=== PATIENT | male | born 1930 | race Caucasian/White ===

== ENCOUNTER 2017-03-10 11:07 | Inpatient (IN) | payer MEDICARE, OTHER ==
[2017-03-10 13:50] VITALS: BMI 25.4
[2017-03-10] MEDS ORDERED: ACETAMINOPHEN TAB 325 MG TAB PO PRN (14:33)
[2017-03-10] MEDS: FINASTERIDE 5 MG TAB PO SCH (15:03)
[2017-03-10] MEDS: MULTIVITAMINS, THERA 1 EACH TAB PO SCH (15:03)
[2017-03-10] MEDS: SODIUM BICARBONATE TAB 650 MG TAB PO SCH (15:03)
--- NOTE | 2017-03-10 20:27 | HP ---
DATE OF ADMISSION: CHIEF COMPLAINT: Altered mental status/confusion. HISTORY OF ILLNESS: Mr. Aleman is an 86-year-old man with a known history of ESRD, on hemodialysis Monday, Monday, Monday and history of paroxysmal atrial fibrillation, currently on aspirin due to previous GI bleed. He is an [facility] resident. He was brought to the hospital with altered mental status. Patient had trouble communicating and was found by his daughter. Patient did have a history of CVA with right hemiparesis as well as right hand weakness. Apparently the patient was confused, having slurred speech, unable to open eyes fully, and drooling since today morning. Patient was initially sent to [facility]. Patient otherwise is a poor historian, and most of the history was obtained from the medical records. Patient follows with Dr. Parham as an outpatient and follows with Dr. Donovan for hemodialysis. Patient could not go to hemodialysis last Monday due to weakness and confusion. Patient also was having trouble swallowing. Patient was transferred initially for further neurologic evaluation, including MRI. He does not have any recent illnesses. Patient usually has weakness on the right side. At a patient care conference 3 days ago he was noted to be weaker on the left side, and there was concern about his ability to swallow. His daughter says the patient has had chronic choking cough along with some mild upper respiratory infection symptoms. Patient does have a history of atrial fibrillation, currently maintained in sinus rhythm; follows with Dr. Gonzales as an outpatient. Anticoagulation has been discontinued due to epistaxis, hemoptysis and bleeding from his shunt. No history of acute VT in the past. Patient does have CHF; ejection fraction unknown at this time. Review of systems could not be obtained from the patient. Past medical history includes: 1. ESRD, on hemodialysis. 2. History of CVA with right-sided hemiparesis. 3. Depression. 4. History of atrial fibrillation, currently maintained in sinus rhythm. Anticoagulation has been discontinued previously due to bleeding. 5. History of CHF. 6. Peptic ulcer disease and diverticulitis. 7. Degenerative joint disease. PAST SURGICAL HISTORY: 1. ( ) left arm. 2. Fracture, left ankle. 3. Right hip surgery on 08/05. SOCIAL HISTORY: Patient does not have any smoking, drinking alcohol, drugs or IVDU. Vaccination up to date. Family history could not be obtained from the patient. ALLERGIES: NO KNOWN DRUG ALLERGIES. Home medications include: 1. Aspirin. 2. Proscar. 3. Mirtazapine. 4. Multivitamins. 5. Sodium bicarbonate. 6. Tylenol. PHYSICAL EXAMINATION: An 86-year-old male lying in the bed. Awake, alert. Could not provide any history. VITALS: Blood pressure is 116/49, pulse 69, respiration 17, temperature afebrile, pulse ox 97% on 2 L nasal cannula. HEENT: Atraumatic, normocephalic. Neck is supple. No JVD. CVS: S1, S2 heard. No murmurs. No gallop. LUNGS: Bilateral air entry is present. Minimal crackles at the base. Nonlabored breathing. ABDOMEN: Soft, nontender. Bowel sounds are present. UPPER INSPECTOR: Awake, alert. Not oriented. Confused. Able to move his extremities on the left side, but does have right-sided hemiparesis, especially right upper arm. PSYCHIATRIC: Cooperative. Could not be assessed completely. EXTREMITIES: No edema. Pulses palpable bilaterally. Laboratory data done at [facility] showed WBC 5.7, hemoglobin 12.2, MCV 92.1, platelets 101. Sodium 139, potassium 4.0, chloride 99, bicarb 24. Glucose 99. BUN 79, creatinine 8.2. Calcium 9.1. Albumin 3.0. Alkaline phosphatase 113, ALT 17, AST 22, total bilirubin 0.8. CK-MB 2.8 and CK 31. Troponin 0.314. INR 1.3. Chest x-ray at [facility] showed cardiomegaly with mild vascular congestion and interstitial prominence/edema bilaterally. Small bilateral pleural effusions are suspected. Nodularity in the hilar region bilaterally. No focal pulmonary infiltrate or pneumothorax noted. Urinalysis at [facility] is negative for infection. EKG showed sinus rhythm with prolonged QT interval. IMPRESSION: 1. Altered mental status; possible metabolic encephalopathy versus new cerebrovascular accident with suspected left-sided weakness as well recently. 2. History of cerebrovascular accident with right hemiparesis in the past. 3. Slurred speech and expressive aphasia. 4. History of atrial fibrillation, currently in sinus rhythm, on aspirin due to previous gastrointestinal bleed. 5. End-stage renal disease, on hemodialysis Monday, Monday and Monday; missed on Monday. 6. Major depression. 7. Elevated troponin level at [facility]; possible [id number]-elevation myocardial infarction. 8. Degenerative joint disease. DISCUSSION AND PLAN: Patient will be continued on telemetry monitoring. Nephrology has been consulted for hemodialysis. Will check serial troponins and monitor closely. Will consult Neurology for further evaluation and workup, including MRI. Will continue to follow closely. Further recommendations based on the clinical course.
[2017-03-10] MEDS: MIRTAZAPINE 15 MG TAB PO SCH ×2 (22:29→22:46)
[2017-03-10] MEDS: ASPIRIN 81 MG CHEW PO SCH ×2 (22:29→22:46)
[2017-03-11 07:20] LABS: Basophils % (A) 1 %; CH 31.1; CHCM 32.5; Eosinophils # (A) 0.1 k/uL (0-0.7); Eosinophils % (A) 2 %; HCT 37.3 % (39.0-53.0); HGB 12.2 gm/dL (13.0-17.5); Luc # (Auto) 0.17; Luc % (Auto) 3; Lymphocytes # (A) 0.8 k/uL (1.0-4.8); Lymphocytes % (A) 14 %; MCH 31.3 pg (25.0-35.0); MCHC 32.7 g/dL (31.0-37.0); MCV 95.8 fL (80.0-100.0); Mean Platelet Volume 9.7; Monocytes # (A) 0.4 k/uL (0-1.0); Monocytes % (A) 7 %; Neutrophils # (A) 4.2 k/uL (1.3-7.7); Neutrophils % (A) 73 %; RDW 15.6 % (11.5-15.5); WBC 5.7 k/uL (3.8-10.6)
[2017-03-11 07:31] LABS: Potassium 4.5 mmol/L (3.5-5.1)
[2017-03-11] MEDS: FINASTERIDE 5 MG TAB PO SCH (08:29)
[2017-03-11] MEDS: MULTIVITAMINS, THERA 1 EACH TAB PO SCH (08:29)
[2017-03-11] MEDS: SODIUM BICARBONATE TAB 650 MG TAB PO SCH (08:29)
--- NOTE | 2017-03-11 09:32 | P.NPCON ---
History of Present Illness - Reason for Consult end stage renal disease - History of Present Illness Reason for consultation: End-stage renal disease History of present illness: Patient is a 86-year-old male seen in renal consultation for end- stage renal disease. He is maintained on hemodialysis on a Monday schedule. Patient presented to the hospital with altered mental status. Apparently he was confused and was having slurred speech as well. There is also concern for a chronic cough and difficulty with swallowing. No fever. White count in normal range. He does have history of CVA. There was concern for an acute CVA at this admission. He scheduled to undergo an MRI of the brain today. Neurology is following. Patient is not a very reliable historian and does not respond appropriately. 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 There is no vomiting or diarrhea. Denies chest pain or shortness of breath. Hemodynamically stable. He did undergo hemodialysis yesterday. 2 L ultrafiltration. Vital signs are stable. General: The patient appeared well nourished and normally developed. HEENT: Head exam is unremarkable. Neck is without jugular venous distension. LUNGS: Lungs are clear to auscultation and percussion. Breath sounds decreased. HEART: Rate and Rhythm are regular. First and second heart sounds normal. No murmurs, rubs or gallops. ABDOMEN: Abdominal exam reveals normal bowel sounds. Non-tender and non- distended. No evidence of peritonitis. EXTREMITITES: No clubbing, cyanosis, or edema. Past Medical History Past Medical History: Atrial Fibrillation, Dialysis, Hypertension Additional Past Medical History / Comment(s): recurrent nose bleeds History of Any Multi-Drug Resistant Organisms: None Reported Past Surgical History: Cholecystectomy, Prostate Surgery Additional Past Surgical History / Comment(s): left arm fistula Past Anesthesia/Blood Transfusion Reactions: No Reported Reaction Past Psychological History: No Psychological Hx Reported Smoking Status: Never smoker Past Alcohol Use History: None Reported Past Drug Use History: None Reported - Past Family History Father Family Medical History: CVA/TIA Mother Family Medical History: Cancer Additional Family Medical History / Comment(s): pancreatic cancer Medications and Allergies Home Medications Medication Instructions Recorded Confirmed Type Aspirin EC [Ecotrin Low Dose] 81 mg PO HS 07/21/16 03/10/17 History Finasteride [Proscar] 5 mg PO DAILY 07/21/16 03/10/17 History Mirtazapine 30 mg PO HS 07/21/16 03/10/17 History Multivitamins, Thera [Multivitamin 1 tab PO DAILY 07/21/16 03/10/17 History (formulary)] Sodium Bicarbonate 325 mg PO DAILY 07/21/16 03/10/17 History Allergies Allergy/AdvReac Type Severity Reaction Status Date / Time No Known Allergies Allergy Verified 03/10/17 15:15 Physical Exam Vitals: Vital Signs Temp Pulse Resp BP Pulse Ox 03/11/17 08:38 98.4 F 74 18 121/67 97 03/11/17 04:00 98.0 F 68 18 109/60 99 03/11/17 00:00 97.3 F L 74 20 158/73 98 03/10/17 20:00 97.3 F L 80 22 164/83 96 03/10/17 19:29 97.1 F L 78 22 141/80 98 03/10/17 16:45 73 03/10/17 16:00 97.6 F 73 18 127/77 99 03/10/17 13:41 97 F L 67 17 116/49 97 Intake and Output 03/10/17 03/11/17 03/11/17 22:59 06:59 14:59 Intake Total 0 0 Balance 0 0 Intake: Oral 0 0 Other: # Voids 1 1 Weight 74.5 kg Results - Lab Results Most recent lab results Calcium 9.0 mg/dL (8.4-10.2) 03/11/17 06:36 03/11/17 06:36 03/11/17 06:36 Assessment and Plan Plan: Assessment: #1. End-stage renal disease maintained on hemodialysis on a Monday schedule. #2. Altered mental status with concern for an acute CVA. #3. Hypertension with chronic kidney disease. Controlled. #4. Metabolic acidosis, maintained on oral sodium bicarbonate. Plan: Hemodialysis Monday with goal 2 liters ultrafiltration. Maintain oral sodium bicarbonate supplementation. Check phosphorus level. Neurology following. Scheduled for MRI of the brain today. Follow-up carotid ultrasound results. He is also on aspirin 81 mg daily. Thank you for the consultation. I will continue to follow the patient with you during his hospital stay.
--- NOTE | 2017-03-11 10:30 | US ---
EXAMINATION TYPE: US carotid duplex BILAT DATE OF EXAM: 03/11/2017 7:54 AM COMPARISON: NONE CLINICAL HISTORY: right sided weakness possible CVA. EXAM MEASUREMENTS: RIGHT: Peak Systolic Velocity (PSV) cm/sec ----- Right CCA: 66.5 ----- Right ICA: 72.1 ----- Right ECA: 83.1 ICA/CCA ratio: 1.1 RIGHT: End Diastole cm/sec ----- Right CCA: 9.9 ----- Right ICA: 12.8 ----- Right ECA: 0.0 LEFT: Peak Systolic Velocity (PSV) cm/sec ----- Left CCA: 62.2 ----- Left ICA: 78.6 ----- Left ECA: 88.7 ICA/CCA ratio: 1.3 LEFT: End Diastole cm/sec ----- Left CCA: 9.1 ----- Left ICA: 13.0 ----- Left ECA: 6.3 VERTEBRALS (direction of flow): Right Vertebral: Antegrade Left Vertebral: Antegrade Patient unable to move neck to cooperate with examiner, making exam technically difficult. No signifi cant stenosis seen. IMPRESSION: 1. No suspicious stenosis. 2. Atheromatous plaquing present bilaterally without significant flow-limiting stenosis. Criteria for Assigning % of Stenosis / Diameter reduction (Estimation based on the indirect measurements of the internal carotid artery velocities (ICA PSV). 1. Normal (no stenosis)=ICA PSV < 125 cm/s: ratio < 2.0: ICA EDV<40 cm/s. 2. Less than 50% stenosis=ICA PSV < 125 cm/s: ratio < 2.0: ICA EDV<40 cm/s. 3. 50 to 69% stenosis=ICA PSV of 125 to 230 cm/s: ration 2.0 ? 4.0: ICA EDV 40-100 cm/s. 4. Greater than 70% stenosis to near occlusion= ICA PSV > 230 cm/s: ratio > 4.0: ICA EDV > 100 cm/s. 5. Near occlusion= ICA PSV velocities may be low or undetectable: variable ratio and ICA EDV. 6. Total occlusion=unable to detect flow.
--- NOTE | 2017-03-11 14:00 | P.CRDCN ---
History of Present Illness Consult date: 03/11/17 Reason for Consult (text): Elevated Troponin Chief complaint: altered mental status, aphasia History of present illness: This is a confused 86-year-old gentleman with family at bedside. He has a history of end-stage renal disease, on hemodialysis, paroxysmal atrial fibrillation, for which anticoagulants were stopped due to epistaxis hemoptysis and bleeding from AV fistula, questionable CVA in the past and CHF. He is a resident at [facility]. He is a patient of Dr. Peace. The patient is confused, drowsy and having expressive aphasia therefore HPI and limited review of system was obtained from the chart and the family. He was sent to ER from his extended care facility after being noted to be confused, increased left- sided weakness and expressive aphasia with some dysphasia. Radiology was asked to see the patient in consult due to elevated troponin levels were noted to be 0.314, 0.2-2 and 0.312, consistent with previous troponin levels. BUN 43 and creatinine 4.94. Chest x-ray did show some mild vascular congestion and small bilateral pleural effusions. According to the family, patient has not had any fever or chills however has had a cough for quite a while. He apparently began complaining of increasing weakness on his left side earlier this week. He has not complained of any chest pain, palpitations or shortness of breath. Past Medical History Past Medical History: Atrial Fibrillation, Dialysis, Hypertension Additional Past Medical History / Comment(s): recurrent nose bleeds History of Any Multi-Drug Resistant Organisms: None Reported Past Surgical History: Cholecystectomy, Prostate Surgery Additional Past Surgical History / Comment(s): left arm fistula Past Anesthesia/Blood Transfusion Reactions: No Reported Reaction Past Psychological History: No Psychological Hx Reported Smoking Status: Never smoker Past Alcohol Use History: None Reported Past Drug Use History: None Reported - Past Family History Father Family Medical History: CVA/TIA Mother Family Medical History: Cancer Additional Family Medical History / Comment(s): pancreatic cancer Medications and Allergies Home Medications Medication Instructions Recorded Confirmed Type Aspirin EC [Ecotrin Low Dose] 81 mg PO HS 07/21/16 03/10/17 History Finasteride [Proscar] 5 mg PO DAILY 07/21/16 03/10/17 History Mirtazapine 30 mg PO HS 07/21/16 03/10/17 History Multivitamins, Thera [Multivitamin 1 tab PO DAILY 07/21/16 03/10/17 History (formulary)] Sodium Bicarbonate 325 mg PO DAILY 07/21/16 03/10/17 History Allergies Allergy/AdvReac Type Severity Reaction Status Date / Time No Known Allergies Allergy Verified 03/10/17 15:15 Physical Exam Vitals: Vital Signs Temp Pulse Resp BP Pulse Ox 03/11/17 08:38 98.4 F 74 18 121/67 97 03/11/17 04:00 98.0 F 68 18 109/60 99 03/11/17 00:00 97.3 F L 74 20 158/73 98 03/10/17 20:00 97.3 F L 80 22 164/83 96 03/10/17 19:29 97.1 F L 78 22 141/80 98 03/10/17 16:45 73 03/10/17 16:00 97.6 F 73 18 127/77 99 03/10/17 13:41 97 F L 67 17 116/49 97 Intake and Output 03/10/17 03/11/17 03/11/17 22:59 06:59 14:59 Intake Total 0 0 Balance 0 0 Intake: Oral 0 0 Other: # Voids 1 1 Weight 74.5 kg PHYSICAL EXAMINATION: HEENT: Head is atraumatic, normocephalic. Pupils equal, round. Neck is supple. There is no elevated jugular venous pressure. HEART EXAMINATION: Heart sounds regular, S1 and S2 normal. No murmur or gallop heard. CHEST EXAMINATION: Lungs reveal diminished air entry. No chest wall tenderness is noted on palpation or with deep breathing. ABDOMEN: Soft, nontender. Bowel sounds are heard. No organomegaly noted. EXTREMITIES: Diminished peripheral pulses with no evidence of peripheral edema and no calf tenderness noted. NEUROLOGIC patient is drowsy, responds to verbal and tactile stimuli, confused with expressive aphasia. . Results 03/11/17 06:36 03/11/17 06:36 Cardiac Enzymes 03/10/17 03/11/17 Range/Units 17:48 06:36 Troponin I 0.222 H* 0.312 H* (0.000-0.034) ng/mL Lipids 03/11/17 Range/Units 06:36 Triglycerides 78 (<150) mg/dL Cholesterol 74 (<200) mg/dL HDL Cholesterol 32 L (40-60) mg/dL CBC 03/11/17 Range/Units 06:36 WBC 5.7 (3.8-10.6) k/uL RBC 3.90 L (4.30-5.90) m/uL Hgb 12.2 L (13.0-17.5) gm/dL Hct 37.3 L (39.0-53.0) % Comprehensive Metabolic Panel 03/11/17 Range/Units 06:36 Sodium 135 L (137-145) mmol/L Potassium 4.5 (3.5-5.1) mmol/L Chloride 98 (98-107) mmol/L Carbon Dioxide 21 L (22-30) mmol/L BUN 43 H (9-20) mg/dL Creatinine 4.94 H (0.66-1.25) mg/dL Glucose 69 L (74-99) mg/dL Calcium 9.0 (8.4-10.2) mg/dL Current Medications Generic Name Dose Route Start Last Admin Trade Name Freq PRN Reason Stop Dose Admin Acetaminophen 650 mg 03/10/17 14:33 Tylenol Tab PO Q6HR PRN Fever > 100.5 Aspirin 81 mg 03/10/17 21:00 03/10/17 22:46 Aspirin PO Not Given HS ASHISH Finasteride 5 mg 03/10/17 14:45 03/11/17 08:29 Proscar PO Not Given DAILY ASHISH Mirtazapine 30 mg 03/10/17 21:00 03/10/17 22:46 Remeron PO Not Given HS ASHISH Multivitamins 1 each 03/10/17 14:45 03/11/17 08:29 Theragran PO Not Given DAILY ASHISH Sodium Bicarbonate 325 mg 03/10/17 14:45 03/11/17 08:29 Sodium Bicarbonate Tab PO Not Given DAILY ASHISH Intake and Output 03/10/17 03/11/17 03/11/17 22:59 06:59 14:59 Intake Total 0 0 Balance 0 0 Intake: Oral 0 0 Other: # Voids 1 1 Weight 74.5 kg 03/11/17 06:36 03/11/17 06:36 Assessment and Plan Plan: Assessment and plan #1 end-stage renal disease, on hemodialysis #2 paroxysmal atrial fibrillation, not currently on anticoagulation secondary to epistaxis, hemoptysis and bleeding from AV fistula #3 CVA #4 history of CHF, ejection fraction unknown at this time #5 elevated troponin, similar to previous draws, not consistent with myocardial injury, likely secondary to renal failure From cardiology standpoint, we will obtain 2-D echo. We will continue to follow the patient with you and provide further recommendations accordingly. RESOURCE SPECIALIST note has been reviewed, I agree with a documented findings and plan of care. Patient was seen and examined.
--- NOTE | 2017-03-11 15:36 | ECHOF ---
Referral Reason:Elevated troponin MEASUREMENTS -------- HEIGHT: 162.6 cm WEIGHT: 6.4 kg BP: 130/40 RVIDd: 2.8 cm (< 3.3) IVSd: 1.1 cm (0.6 - 1.1) LVIDd: 4.5 cm (3.9 - 5.3) LVPWd: 1.1 cm (0.6 - 1.1) IVSs: 1.7 cm LVIDs: 3.8 cm LVPWs: 1.5 cm LA Diam: 4.9 cm (2.7 - 3.8) Ao Diam: 3.3 cm (2.0 - 3.7) AV Cusp: 1.5 cm (1.5 - 2.6) LA Diam: 6.0 cm (2.7 - 3.8) MV EXCURSION: 20.607 mm (> 18.000) MV EF SLOPE: 73 mm/s (70 - 150) EPSS: 0.9 cm MV E Joel: 1.15 m/s MV A Joel: 0.39 m/s MV E/A Ratio: 2.97 RAP: 5.00 mmHg RVSP: 42.35 mmHg FINDINGS -------- Sinus rhythm. This was a technically adequate study. There is mild concentric left ventricular hypertrophy. Overall left ventricular systolic function is low-normal with, an EF between 50 - 55 %. The right ventricle is normal in size. The left atrium is markedly dilated. The right atrial size is normal. There is mild aortic valve sclerosis. There is no evidence of aortic regurgitation. Mild mitral annular calcification present. Mild mitral regurgitation is present. Mild tricuspid regurgitation present. There is no evidence of pulmonary hypertension. The right ventricular systolic pressure, as measured by Doppler, is 42.35mmHg. Trace/mild (physiologic) pulmonic regurgitation. The aortic root size is normal. There is no pericardial effusion. CONCLUSIONS -------- 1. There is mild concentric left ventricular hypertrophy. 2. Trace/mild (physiologic) pulmonic regurgitation. 3. The aortic root size is normal. 4. There is no pericardial effusion. 5. Overall left ventricular systolic function is low-normal with, an EF between 50 - 55 %. 6. The left atrium is markedly dilated. 7. There is mild aortic valve sclerosis. 8. Mild mitral annular calcification present. 9. Mild mitral regurgitation is present. 10. Mild tricuspid regurgitation present. 11. There is no evidence of pulmonary hypertension. 12. The right ventricular systolic pressure, as measured by Doppler, is 42.35mmHg. WOLF HUNTER: Monique Dove RDCS
--- NOTE | 2017-03-11 16:45 | CT ---
EXAMINATION TYPE: CT brain wo con DATE OF EXAM: 03/11/2017 4:13 PM COMPARISON: NONE INDICATION: Confusion. Recurrent CVA. DLP: 1005.8 mGycm, Automated exposure control for dose reduction was used. CONTRAST: None CT of the brain is performed utilizing 3 mm thick sections through the posterior fossa and 3 mm thick sections through the remaining calvarium. Study is performed within 24 hours of arrival to the hosp ital. No abnormal hyperdensity is present to suggest an acute intracranial hemorrhage. No mass lesion is evident. No acute infarcts are evident. There is hypodensity in the periventricular white matter, most likely on the basis of chronic white matter ischemic changes. Ventricles and sulci are mildly prominent for the patient age. Paranasal sinuses and mastoid air cells within the [id number] are clear. IMPRESSIONS: 1. Mild age-related atrophy with periventricular white matter ischemic changes.
[2017-03-11] MEDS: ASPIRIN 81 MG CHEW PO SCH (21:08)
[2017-03-11] MEDS: MIRTAZAPINE 15 MG TAB PO SCH (21:08)
--- NOTE | 2017-03-11 22:41 | P.CNNES ---
History of Present Illness Consult date: 03/11/17 Requesting physician: Alana Devlin Reason for Consult: CVA Chief complaint: possible CVA, mental status changes History of Present Illness: Neurology consult and an 86-year-old male with known history of end-stage renal disease on hemodialysis Monday, Monday, Monday and history of paroxysmal atrial fibrillation, currently on aspirin due to previous GI bleed. Patient is a resident of a long-term care facility and was brought to the hospital with altered mental status. Patient had trouble communicating and was found by his daughter. 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 On presentation the patient was confused, having slurred speech, unable to open eyes fully and drooling since earlier in the day. Patient was transported to [facility]. Patient is known to be a poor historian and most of the history is obtained from medical records. Patient missed his scheduled hemodialysis appointment last Monday due to weakness and confusion. Patient is also experiencing difficulty swallowing. Patient was initially transferred for neurological evaluation and MRI. Patient is known to have weakness on the right side. He was observed 3 days ago that the patient also began having left sided weakness and concern related to his ability to swallow. Patient also as a chronic cough with some mild upper respiratory symptoms. Patient does have a history of atrial fibrillation. Anticoagulation had been discontinued due to epistaxis, hemoptysis and bleeding from his shunt. No prior history of acute IA in the past. Patient was in his bed, supine, awake, confused. No family was in the room. Review of Systems ALL systems not noted above in HPI or negative Past Medical History Past Medical History: Atrial Fibrillation, Dialysis, Hypertension Additional Past Medical History / Comment(s): recurrent nose bleeds History of Any Multi-Drug Resistant Organisms: None Reported Past Surgical History: Cholecystectomy, Prostate Surgery Additional Past Surgical History / Comment(s): left arm fistula Past Anesthesia/Blood Transfusion Reactions: No Reported Reaction Past Psychological History: No Psychological Hx Reported Smoking Status: Never smoker Past Alcohol Use History: None Reported Past Drug Use History: None Reported - Past Family History Father Family Medical History: CVA/TIA Mother Family Medical History: Cancer Additional Family Medical History / Comment(s): pancreatic cancer Medications and Allergies Home Medications Medication Instructions Recorded Confirmed Type Aspirin EC [Ecotrin Low Dose] 81 mg PO HS 07/21/16 03/10/17 History Finasteride [Proscar] 5 mg PO DAILY 07/21/16 03/10/17 History Mirtazapine 30 mg PO HS 07/21/16 03/10/17 History Multivitamins, Thera [Multivitamin 1 tab PO DAILY 07/21/16 03/10/17 History (formulary)] Sodium Bicarbonate 325 mg PO DAILY 07/21/16 03/10/17 History Allergies Allergy/AdvReac Type Severity Reaction Status Date / Time No Known Allergies Allergy Verified 03/10/17 15:15 Physical Examination - Vital Signs Vital Signs: Vital Signs Temp Pulse Resp BP Pulse Ox 03/11/17 15:30 97.4 F L 73 18 109/60 96 03/11/17 11:54 96.7 F L 73 18 109/64 95 03/11/17 08:38 98.4 F 74 18 121/67 97 03/11/17 04:00 98.0 F 68 18 109/60 99 03/11/17 00:00 97.3 F L 74 20 158/73 98 Intake and Output 03/11/17 03/11/17 03/11/17 06:59 14:59 22:59 Intake Total 0 Balance 0 Intake: Oral 0 Other: # Voids 1 1 Weight 74.5 kg Constitutional: awake, confused but responds to verbal stimuli intermittently. HEENT: NC/AT, no facial asymmetry is seen. Neck: Supple, no masses Respiratory: No increased work of breathing Cardiac: Regular rate and Rhythm GI: non tender, non distended Musculoskeletal: right-sided hemiparesis, left upper and lower extremity weakness, patient does not respond appropriately during physical exam further musculoskeletal assessment was unable to be completed. Neurological: CN II-XII could not be fully assessed, patient confused and unable to cooperate. Integementary: no rash, no erythema Psychiatric: mood and affect appropriate Results - Laboratory Findings CBC and BMP: 03/11/17 06:36 03/11/17 06:36 Abnormal Lab Findings: Abnormal Labs 03/10/17 03/11/17 03/11/17 17:48 06:36 06:36 RBC 3.90 L Hgb 12.2 L Hct 37.3 L RDW 15.6 H Plt Count 77 L Lymphocytes # 0.8 L Sodium 135 L Carbon Dioxide 21 L BUN 43 H Creatinine 4.94 H Glucose 69 L Phosphorus Troponin I 0.222 H* HDL Cholesterol 32 L Homocysteine 03/11/17 03/11/17 03/11/17 06:36 06:36 06:36 RBC Hgb Hct RDW Plt Count Lymphocytes # Sodium Carbon Dioxide BUN Creatinine Glucose Phosphorus 4.9 H Troponin I 0.312 H* HDL Cholesterol Homocysteine 30.51 H Assessment and Plan (1) Mental status change Status: Acute (2) Uremia Status: Acute (3) Expressive aphasia Status: Acute (4) Anemia, chronic disease Status: Acute Plan: Patient's current medical status appears to be multifactorial. no current documentation in patient's chart indicating what his normal baseline mental status is at his long-term care facility. MRI of the brain was requested but the patient was unable to accommodate the MRI. CT was obtained. CT was unremarkable to explain acute process. After reviewing the patient's labs patient does appear to be uremic. At this time the patient does not appear to have suffered a CVA. His current status is most likely related to his multiple chronic conditions and lack of dialysis. Continue neuro checks as ordered. Continue anticoagulation management as ordered. Status: Neurology will continue to follow provide updates as needed or warranted. If you have any questions please feel free to contact our office.
[2017-03-12 07:09] LABS: Basophils % (A) 0 %; CH 31.1; CHCM 31.3; Eosinophils # (A) 0.1 k/uL (0-0.7); Eosinophils % (A) 1 %; HCT 40.3 % (39.0-53.0); HDW 2.46; HGB 12.6 gm/dL (13.0-17.5); Hypochromasia Slight; Luc # (Auto) 0.15; Luc % (Auto) 3; Lymphocytes # (A) 0.6 k/uL (1.0-4.8); Lymphocytes % (A) 11 %; MCH 31.1 pg (25.0-35.0); MCHC 31.2 g/dL (31.0-37.0); MCV 99.7 fL (80.0-100.0); Macrocytosis Slight; Mean Platelet Volume 9.8; Monocytes # (A) 0.4 k/uL (0-1.0); Monocytes % (A) 6 %; Neutrophils # (A) 4.7 k/uL (1.3-7.7); Neutrophils % (A) 79 %; RBC 4.04 m/uL (4.30-5.90); RDW 15.6 % (11.5-15.5); WBC 5.9 k/uL (3.8-10.6); WBC (Perox) 6.12
[2017-03-12 07:29] LABS: Calcium 9.3 mg/dL (8.4-10.2); Potassium 4.2 mmol/L (3.5-5.1)
[2017-03-12] MEDS: SODIUM BICARBONATE TAB 650 MG TAB PO SCH (07:37)
[2017-03-12] MEDS: MULTIVITAMINS, THERA 1 EACH TAB PO SCH (07:37)
[2017-03-12] MEDS: FINASTERIDE 5 MG TAB PO SCH (07:37)
--- NOTE | 2017-03-12 08:55 | P.PN ---
Subjective Patient is seen in follow-up for end-stage renal disease. He is maintained on hemodialysis on a Monday schedule. Patient presented with altered mental status as well as slurred speech. CT of the brain revealed no evidence of acute CVA. He is currently resting in bed. He responds to verbal commands appropriately. Denies chest pain or shortness of breath. He is not able to tolerate oral intake as he failed swallow evaluation. No vomiting or diarrhea. Hemodynamically stable. Vital signs are stable. General: The patient appeared well nourished and normally developed. HEENT: Head exam is unremarkable. Neck is without jugular venous distension. LUNGS: Lungs are clear to auscultation and percussion. Breath sounds decreased. HEART: Rate and Rhythm are regular. First and second heart sounds normal. No murmurs, rubs or gallops. ABDOMEN: Abdominal exam reveals normal bowel sounds. Non-tender and non- distended. No evidence of peritonitis. EXTREMITITES: No clubbing, cyanosis, or edema. Objective - Vital Signs Vital signs: Vital Signs Temp 96.2 F L 03/12/17 08:19 Pulse 66 03/12/17 08:19 Resp 18 03/12/17 08:19 BP 136/63 03/12/17 08:19 Pulse Ox 96 03/12/17 04:00 Intake & Output 03/11/17 03/12/17 03/12/17 18:59 06:59 18:59 Intake Total 0 100 Output Total 75 Balance 0 -75 100 Weight 71.5 kg Intake: Oral 0 100 Output: Urine 75 Other: Voiding Method Urinal Urinal Incontinent Incontinent # Voids 1 1 - Labs CBC & Chem 7: 03/12/17 06:43 03/12/17 06:43 Labs: Abnormal Lab Results - Last 24 Hours (Table) 03/11/17 03/11/17 03/11/17 Range/Units 06:36 06:36 06:36 RBC 3.90 L (4.30-5.90) m/uL Hgb 12.2 L (13.0-17.5) gm/dL Hct 37.3 L (39.0-53.0) % RDW 15.6 H (11.5-15.5) % Plt Count 77 L (150-450) k/uL Lymphocytes # 0.8 L (1.0-4.8) k/uL Chloride (98-107) mmol/L Carbon Dioxide (22-30) mmol/L BUN (9-20) mg/dL Creatinine (0.66-1.25) mg/dL Glucose (74-99) mg/dL Phosphorus (2.5-4.5) mg/dL Troponin I 0.312 H* (0.000-0.034) ng/mL Homocysteine 30.51 H (4.00-14.00) umol/L 03/11/17 03/12/17 03/12/17 Range/Units 06:36 06:43 06:43 RBC 4.04 L (4.30-5.90) m/uL Hgb 12.6 L (13.0-17.5) gm/dL Hct (39.0-53.0) % RDW 15.6 H (11.5-15.5) % Plt Count 85 L (150-450) k/uL Lymphocytes # 0.6 L (1.0-4.8) k/uL Chloride 96 L (98-107) mmol/L Carbon Dioxide 20 L (22-30) mmol/L BUN 55 H (9-20) mg/dL Creatinine 6.54 H* (0.66-1.25) mg/dL Glucose 61 L (74-99) mg/dL Phosphorus 4.9 H (2.5-4.5) mg/dL Troponin I (0.000-0.034) ng/mL Homocysteine (4.00-14.00) umol/L Assessment and Plan Plan: Assessment: #1. End-stage renal disease maintained on hemodialysis on a Monday schedule. #2. Altered mental status with concern for an acute CVA. This is not due to uremia. #3. Hypertension with chronic kidney disease. Controlled. #4. Metabolic acidosis, maintained on oral sodium bicarbonate. Plan: Hemodialysis Monday with goal 2 liters ultrafiltration. Maintain oral sodium bicarbonate supplementation. He is also on aspirin 81 mg daily.
--- NOTE | 2017-03-12 16:26 | P.PN ---
Subjective Principal diagnosis: CVA Neurology is following an 86-year-old male with known history of end-stage renal disease on hemodialysis. He also has a history of paroxysmal atrial fibrillation, currently on aspirin due to previous GI bleed. Patient is a resident of long-term care facility and was brought to the hospital with altered mental status. Patient had trouble communicating was found by his daughter. 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 On presentation patient was confused having slurred speech, unable to open eyes fully and drooling since earlier in the day. Patient was transported [facility]. Patient is known to be a poor historian. Patient was scheduled at hemodialysis last week but due to illness and weakness, missed his appointment. Patient also had reported difficulty swallowing. Patient was transferred for neurological examination & MRI. Patient was known to have weakness on the right side. As observed 3 days ago patient began having left- sided weakness and concern related to his ability to swallow. Patient had a mild chronic cough with mild upper respiratory symptoms. As noted patient does have a history of atrial fibrillation. Anticoagulation has been discontinued due to epistaxis, hmoptysis and bleeding from his shunt. No history of acute ND in the past. Interval update: Patient has improved considerably. Today he was alert and oriented 3, left- sided weakness was resolving, speech and language were full and appropriate. Patient was supine in bed in no acute distress. Objective - Vital Signs Vital signs: Vital Signs Temp 97.4 F L 03/12/17 11:30 Pulse 70 03/12/17 11:30 Resp 18 03/12/17 11:30 BP 121/66 03/12/17 11:30 Pulse Ox 97 03/12/17 11:30 Intake & Output 03/11/17 03/12/17 03/12/17 18:59 06:59 18:59 Intake Total 0 100 Output Total 75 100 Balance 0 -75 0 Weight 71.5 kg Intake: Oral 0 100 Output: Urine 75 100 Other: Voiding Method Urinal Urinal Incontinent Incontinent # Voids 1 1 - Exam Constitutional: AOx3, cooperative HEENT: NC/AT, no facial asymmetry is seen. Neck: Supple, no masses Respiratory: No increased work of breathing Cardiac: Regular rate and Rhythm GI: non tender, non distended Musculoskeletal: Incinerator Operator strengths are unequal bilaterally 4/5 RUE, 2-3/5 LUE, Lower extremity strengths are unequal bilaterally at 4/5 RUE, 2-3/5 LLE. Neurological: CN II-XII in tact, patient was AOx3, speech and language are normal, unilateralizing weakness as previously noted, no seizure activity note on physical exam. Sensation was normal. Integementary: no rash, no erythema Psychiatric: mood and affect appropriate - Constitutional General appearance: Present: cooperative - Labs CBC & Chem 7: 03/12/17 06:43 03/12/17 06:43 Labs: Abnormal Lab Results - Last 24 Hours (Table) 03/12/17 03/12/17 Range/Units 06:43 06:43 RBC 4.04 L (4.30-5.90) m/uL Hgb 12.6 L (13.0-17.5) gm/dL RDW 15.6 H (11.5-15.5) % Plt Count 85 L (150-450) k/uL Lymphocytes # 0.6 L (1.0-4.8) k/uL Chloride 96 L (98-107) mmol/L Carbon Dioxide 20 L (22-30) mmol/L BUN 55 H (9-20) mg/dL Creatinine 6.54 H* (0.66-1.25) mg/dL Glucose 61 L (74-99) mg/dL Assessment and Plan (1) Mental status change Status: Acute (2) Uremia Narrative/Plan: Per nephrology, the patient appears non-uremic. Status: Acute (3) Expressive aphasia Narrative/Plan: resolved Status: Acute (4) Anemia, chronic disease Narrative/Plan: Patient does have anemia of chronic disease with chronic kidney disorder. A significant number of the patient's abnormal laboratory results are related to his dialysis status and his declining kidney function. Patient's homocystine level was noted to be elevated. I will prescribe Foltx at this time. Overall the patient is improving. Recommend consideration for restarting patient's aspirin therapy/anticoagulation management. Status: Neurology will continue to follow and provide further updates as needed or warranted. Status: Acute
--- NOTE | 2017-03-12 19:18 | P.PN ---
Subjective Principal diagnosis: altered mental status, possible TIA, history of atrial fibrillation This 86-year-old gentleman was transferred here her evaluation of altered mental status and suspected CVA. Neurologist felt that his symptoms of altered mental status could be related to renal failure and uremia. Patient seemed to be looking much better today. Patient is also getting dialysis regularly. Apparently patient has missed some dialysis before. Patient has chronic atrial fibrillation. Patient was on anti-cognition therapy but has been discontinued because of bleeding problems. He appears to be more alert today. We will continue current medical therapy and I do not think patient is a candidate for anti-cognition therapy. Baby aspirin may be considered Objective - Vital Signs Vital signs: Vital Signs Temp 96.8 F L 03/12/17 16:14 Pulse 70 03/12/17 16:14 Resp 18 03/12/17 16:14 BP 120/59 03/12/17 16:14 Pulse Ox 98 03/12/17 16:14 Intake & Output 03/12/17 03/12/17 03/13/17 06:59 18:59 06:59 Intake Total 100 Output Total 75 100 Balance -75 0 Weight 71.5 kg Intake: Oral 100 Output: Urine 75 100 Other: Voiding Method Urinal Urinal Incontinent Incontinent # Voids 1 1 - Exam GENERAL EXAM: Patient is alert and appears to be weak. Slow in communication but seems to be alert and oriented to person and place and time HEENT: Normocephalic. N. CHEST: No chest wall deformity. LUNGS: [Equal air entry with no crackles or wheeze HEART: [S1 and S2 normal with no audible mumurs or gallops. Regular rhythm, femorals equal on both sides..] ABDOMEN: No hepatosplenomegaly, normal bowel sounds, no guarding or rigidity. SKIN: No rashes CENTRAL NERVOUS SYSTEM: No focal deficits. EXTREMITIES: [No cyanosis, clubbing or edema.]70 fallsX of the falls - Labs CBC & Chem 7: 03/12/17 06:43 03/12/17 06:43 Labs: Abnormal Lab Results - Last 24 Hours (Table) 03/12/17 03/12/17 Range/Units 06:43 06:43 RBC 4.04 L (4.30-5.90) m/uL Hgb 12.6 L (13.0-17.5) gm/dL RDW 15.6 H (11.5-15.5) % Plt Count 85 L (150-450) k/uL Lymphocytes # 0.6 L (1.0-4.8) k/uL Chloride 96 L (98-107) mmol/L Carbon Dioxide 20 L (22-30) mmol/L BUN 55 H (9-20) mg/dL Creatinine 6.54 H* (0.66-1.25) mg/dL Glucose 61 L (74-99) mg/dL Assessment and Plan (1) Chronic atrial fibrillation Status: Acute (2) Expressive aphasia Status: Acute (3) Mental status change Status: Acute (4) Uremia Status: Acute (5) Renal failure Status: Acute Plan: We will continue current medical therapy. Patient doesn't seem to be good candidate for anticoagulation. May consider baby aspirin. Prognosis is guarded
[2017-03-12] MEDS: ASPIRIN 81 MG CHEW PO SCH (23:32)
[2017-03-12] MEDS: MIRTAZAPINE 15 MG TAB PO SCH (23:32)
[2017-03-13 06:49] LABS: Basophils % (A) 1 %; CHCM 32.3; Eosinophils # (A) 0.1 k/uL (0-0.7); Eosinophils % (A) 2 %; HCT 37.3 % (39.0-53.0); HDW 2.65; HGB 12.1 gm/dL (13.0-17.5); Luc # (Auto) 0.15; Luc % (Auto) 3; Lymphocytes # (A) 0.8 k/uL (1.0-4.8); Lymphocytes % (A) 14 %; MCH 31.1 pg (25.0-35.0); MCHC 32.3 g/dL (31.0-37.0); MCV 96.3 fL (80.0-100.0); Mean Platelet Volume 9.9; Monocytes # (A) 0.4 k/uL (0-1.0); Monocytes % (A) 7 %; Neutrophils # (A) 4.3 k/uL (1.3-7.7); Neutrophils % (A) 75 %; RBC 3.87 m/uL (4.30-5.90); RDW 15.2 % (11.5-15.5); WBC 5.8 k/uL (3.8-10.6); WBC (Perox) 5.98
[2017-03-13 07:03] LABS: Calcium 9.4 mg/dL (8.4-10.2); Potassium 4.4 mmol/L (3.5-5.1)
--- NOTE | 2017-03-13 10:33 | P.PN ---
Subjective Patient is seen in follow-up for end-stage renal disease. He is maintained on hemodialysis on a Monday schedule. Patient presented with altered mental status as well as slurred speech. CT of the brain revealed no evidence of acute CVA. He is currently resting in bed. He responds to verbal commands appropriately. Denies chest pain or shortness of breath. He is not able to tolerate oral intake as he failed swallow evaluation. He is undergoing another swallow evaluation today. No vomiting or diarrhea. Hemodynamically stable. Vital signs are stable. General: The patient appeared well nourished and normally developed. HEENT: Head exam is unremarkable. Neck is without jugular venous distension. LUNGS: Lungs are clear to auscultation and percussion. Breath sounds decreased. HEART: Rate and Rhythm are regular. First and second heart sounds normal. No murmurs, rubs or gallops. ABDOMEN: Abdominal exam reveals normal bowel sounds. Non-tender and non- distended. No evidence of peritonitis. EXTREMITITES: No clubbing, cyanosis, or edema. Objective - Vital Signs Vital signs: Vital Signs Temp 97.8 F 03/13/17 02:38 Pulse 69 03/13/17 02:38 Resp 18 03/13/17 02:38 BP 106/56 03/13/17 02:38 Pulse Ox 97 03/13/17 02:38 Intake & Output 03/12/17 03/13/17 03/13/17 18:59 06:59 18:59 Intake Total 100 Output Total 100 275 Balance 0 -275 Weight 65.5 kg Intake: Oral 100 Output: Urine 100 275 Other: Voiding Method Urinal Urinal Incontinent Incontinent # Voids 1 - Labs CBC & Chem 7: 03/13/17 06:14 03/13/17 06:14 Labs: Abnormal Lab Results - Last 24 Hours (Table) 03/13/17 03/13/17 Range/Units 06:14 06:14 RBC 3.87 L (4.30-5.90) m/uL Hgb 12.1 L (13.0-17.5) gm/dL Hct 37.3 L (39.0-53.0) % Plt Count 101 L (150-450) k/uL Lymphocytes # 0.8 L (1.0-4.8) k/uL Carbon Dioxide 18 L (22-30) mmol/L BUN 69 H (9-20) mg/dL Creatinine 7.83 H* (0.66-1.25) mg/dL Glucose 62 L (74-99) mg/dL Assessment and Plan Plan: Assessment: #1. End-stage renal disease maintained on hemodialysis on a Monday schedule. #2. Altered mental status with concern for an acute CVA. This is not due to uremia. #3. Hypertension with chronic kidney disease. Controlled. #4. Metabolic acidosis, maintained on oral sodium bicarbonate. #5. Chronic atrial fibrillation. Rate controlled. Plan: Hemodialysis today with goal 2 liters ultrafiltration. Maintain oral sodium bicarbonate supplementation. Neurology following.
--- NOTE | 2017-03-13 11:15 | PN ---
DATE OF SERVICE: 03/12/2017 INTERVAL HISTORY: Mr. Guillen is an 86-year-old male with known history of ESRD on hemodialysis, previous history of CVA with right side weakness, was admitted to the hospital with slurred speech and poor oral intake along with suspected left-sided weakness as well. The left-sided weakness and slurred speech has completed resolved, otherwise patient is still having difficulty swallowing and been kept n.p.o. and pending swallow evaluation tomorrow. Patient has been followed by nephrology and cardiology and neurology as well. Neurology workup including CT of the head, carotid duplex and 2-D echo showed no acute process. MRI could not be done as the patient could not accommodate. Otherwise, today the patient denied any complaints of chest pain or short of breath. No nausea or vomiting or abdominal pain. Patient is more awake and oriented now. Denied any complaints. REVIEW OF SYSTEMS: CONSTITUTIONAL: No fever. No chills. RESPIRATORY: No cough or sputum production. CARDIOVASCULAR: No chest pain. NEUROLOGIC: No headache or dizziness. Patient denied any numbness or tingling. PSYCHIATRIC: Cooperative. All other review of systems negative except as above. CURRENT MEDICATIONS: Reviewed. PHYSICAL EXAMINATION: An 86-year-old male lying in bed comfortably, awake, alert, oriented x3. Appears to be in no apparent distress. VITALS: Blood pressure 108/59, pulse is 72, respirations 18, temperature afebrile, pulse ox 96% on room air. HEENT: Atraumatic, normocephalic. Neck is supple. No JVD. CVS: S1, S2 heard. No murmurs or gallop. LUNGS: Bilateral air entry is present. No wheezing. Patient does have minimal crackles at the base. Nonlabored breathing. ABDOMEN: Soft, nontender. Bowel sounds are present. GEOLOGICAL ENGINEERING TEACHER: Awake, alert, oriented x3. The patient does have right-sided weakness ( ). LABORATORY DATA: WBC 5.9, hemoglobin 12.6, platelets 85. Sodium 138, potassium 4.2, chloride 19, bicarbonate 20, BUN 55, creatinine 6.54. Blood sugar is 61. Calcium 9.3. IMPRESSION: 1. Altered mental status, possibly related to metabolic encephalopathy, improved at this time. Suspected cerebrovascular accident, but neurologic workup has been negative. Suspected cerebrovascular accident due to left side weakness, which has completely resolved now. 2. Slurred speech and aphasia, improved. Patient still having swallow difficulty. Currently kept n.p.o. pending swallow evaluation tomorrow. 3. History of cerebrovascular accident with right hemiparesis in the past. 4. End-stage renal disease on hemodialysis Monday, Monday, Monday. 5. Chronic atrial fibrillation, on aspirin due to previous bleed. 6. Major depression. 7. Elevated troponin level ( ) due to chronic kidney disease. No complaints of chest pain. 8. Degenerative joint disease. 9. Deep venous thrombosis prophylaxis. DISCUSSION AND PLAN: Patient will continue with current management and neurological workup has been negative. Speech and swallow evaluation tomorrow. Currently kept n.p.o. Further options depending on the swallow evaluation and Nephrology, Cardiology and Neurology is following the patient. Further recommendations based on the clinical course.
--- NOTE | 2017-03-13 11:15 | PN ---
DATE OF SERVICE: 03/11/2017 INTERVAL HISTORY: Mr. Aleman is an 86-year-old male with a known history of ESRD on hemodialysis, history of CVA with right-sided weakness and chronic atrial fibrillation, currently on aspirin due to previous GI bleed, was sent from skilled nursing to [facility] with ( ) and possible new onset CVA and decrease of oral intake and lethargic and patient's current neurologic work-up, including CT head, carotid duplex and echocardiogram have been essentially negative. Neurology has seen the patient and thought to be due to metabolic encephalopathy secondary to uremia and missing hemodialysis. Currently, patient is more awake and oriented and able to communicate but the patient was having cough with swallow study and has been kept n.p.o. since then. Speech and ( ) has been consulted. Nephrology is following the patient for hemodialysis and Cardiology is following as well. Otherwise, no acute overnight issues. REVIEW OF SYSTEMS: CONSTITUTIONAL: No fever. No chills. No weakness. RESPIRATORY: No cough or sputum production. CARDIOVASCULAR: No chest pain or short of breath. ABDOMEN: No nausea, vomiting or abdominal pain. GENITOURINARY: Negative. ENDOCRINE: Negative. PSYCHIATRY: Negative. All other review of systems negative except as above. Current medications reviewed. PHYSICAL EXAMINATION: An 86-year-old male, lying in the bed. Awake, alert, oriented x3. He appears to be in no apparent distress. VITALS: Blood pressure is 108/61, pulse is 74, respiration 18, temperature afebrile, pulse ox 93% on room air. HEENT: Atraumatic, normocephalic. Neck is supple. No JVD. CVS EXAM: S1, S2 heard. No murmurs, no gallop. Regular rhythm. LUNGS: Bilateral air entry is present. Basilar crackles positive. Nonlabored breathing. Abdomen is soft, nontender. Bowel sounds present. VIDEO GAME PRODUCER: Awake, alert, oriented x3. Patient does have right-sided weakness. PSYCHIATRIC: Cooperative. EXTREMITIES: No edema, pulses palpable bilaterally, no clubbing or cyanosis. LABORATORY DATA: WBC is 5.7, hemoglobin 12.2, platelets 77, sodium 135, potassium 4.5, chloride 98, bicarb is 21, BUN 43, creatinine 4.94. Troponin 0.31. homocysteine is 30.51, influenza PCR negative. IMPRESSION: 1. Altered mental status, possible metabolic encephalopathy. Unlikely, acute cerebrovascular accident as per Neurology, left-sided weakness completely resolved. 2. Difficulty swallowing. 3. History of cerebrovascular accident with right-sided hemiparesis in the past especially right upper extremity. 4. Slurred speech and expressive aphasia, improved. 5. Endstage renal disease on hemodialysis Monday, Monday, Monday. 6. Chronic atrial fibrillation, was on anticoagulation with Eliquis which has been discontinued due to bleed and currently on aspirin. 7. Major depression. 8. Elevated troponin level, possible N-STEMI. Continue with the medical management, likely due to renal function. 9. Degenerative joint disease. 10. Deep venous thrombosis prophylaxis. DISCUSSION: Patient will be continued with the current management, continue with the hemodialysis, and continue the aspirin and follow up closely. Speech evaluation is pending at this time. Patient continues to be n.p.o. Further recommendations based on the clinical course.
[2017-03-13] MEDS: SODIUM BICARBONATE TAB 650 MG TAB PO SCH (11:36)
[2017-03-13] MEDS: FINASTERIDE 5 MG TAB PO SCH (11:37)
[2017-03-13] MEDS: MULTIVITAMINS, THERA 1 EACH TAB PO SCH (11:37)
[2017-03-13] MEDS ORDERED: CYANOCOBALAMIN-FA-PYRIDOXINE 1 EACH TAB PO SCH (12:00)
--- NOTE | 2017-03-13 20:51 | P.PN ---
Subjective Principal diagnosis: CVA Neurology is following an 86-year-old male with known history of end-stage renal disease on hemodialysis. He also has a history of paroxysmal atrial fibrillation, currently on aspirin due to previous GI bleed. Patient is a resident of long-term care facility and was brought to the hospital with altered mental status. Patient had trouble communicating was found by his daughter. 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 On presentation patient was confused having slurred speech, unable to open eyes fully and drooling since earlier in the day. Patient was transported [facility]. Patient is known to be a poor historian. Patient was scheduled at hemodialysis last week but due to illness and weakness, missed his appointment. Patient also had reported difficulty swallowing. Patient was transferred for neurological examination & MRI. Patient was known to have weakness on the right side. As observed 3 days ago patient began having left- sided weakness and concern related to his ability to swallow. Patient had a mild chronic cough with mild upper respiratory symptoms. As noted patient does have a history of atrial fibrillation. Anticoagulation has been discontinued due to epistaxis, hmoptysis and bleeding from his shunt. No history of acute MD in the past. Interval update: Patient has improved considerably. Today he was alert and oriented 3, left- sided weakness was resolving, speech and language were full and appropriate. Patient was supine in bed in no acute distress. Objective - Vital Signs Vital signs: Vital Signs Temp 96.2 F L 03/13/17 15:15 Pulse 68 03/13/17 15:15 Resp 18 03/13/17 15:15 BP 108/56 03/13/17 15:15 Pulse Ox 98 03/13/17 15:15 Intake & Output 03/13/17 03/13/17 03/14/17 06:59 18:59 06:59 Intake Total 100 Output Total 275 100 Balance -275 0 Weight 65.5 kg Intake: Oral 100 Output: Urine 275 100 Other: Voiding Method Urinal Urinal Incontinent Incontinent - Exam Constitutional: AOx3, cooperative HEENT: NC/AT, no facial asymmetry is seen. Neck: Supple, no masses Respiratory: No increased work of breathing Cardiac: Regular rate and Rhythm GI: non tender, non distended Musculoskeletal: Waste Salvager strengths are unequal bilaterally 4/5 RUE, 2-3/5 LUE, Lower extremity strengths are unequal bilaterally at 4/5 RUE, 2-3/5 LLE. Neurological: CN II-XII in tact, patient was AOx3, speech and language are normal, unilateralizing weakness as previously noted, no seizure activity note on physical exam. Sensation was normal. Integementary: no rash, no erythema Psychiatric: mood and affect appropriate - Labs CBC & Chem 7: 03/13/17 06:14 03/13/17 06:14 Labs: Abnormal Lab Results - Last 24 Hours (Table) 03/13/17 03/13/17 Range/Units 06:14 06:14 RBC 3.87 L (4.30-5.90) m/uL Hgb 12.1 L (13.0-17.5) gm/dL Hct 37.3 L (39.0-53.0) % Plt Count 101 L (150-450) k/uL Lymphocytes # 0.8 L (1.0-4.8) k/uL Carbon Dioxide 18 L (22-30) mmol/L BUN 69 H (9-20) mg/dL Creatinine 7.83 H* (0.66-1.25) mg/dL Glucose 62 L (74-99) mg/dL Assessment and Plan (1) Mental status change Status: Acute (2) Uremia Narrative/Plan: Per nephrology, the patient appears non-uremic. Status: Acute (3) Expressive aphasia Narrative/Plan: resolved Status: Acute (4) Anemia, chronic disease Narrative/Plan: Patient does have anemia of chronic disease with chronic kidney disorder. Does appear to be some confusion between was reported at the ED related to the patient not attending his Monday dialysis appointment. Currently family is stating that he missed his appointment due to being sent to the ER. ER notes reflect that the patient missed his dialysis appointment. It is possible with the added explanation by the family that the patient may have suffered a TIA which is now resolved. A significant number of the patient's abnormal laboratory results are also related to his current status. Patient's homocystine level was noted to be elevated. I will prescribe Foltx at this time. Overall the patient is improving. Continue aspirin at discharge. Status: Neurology will continue follow on as-needed basis. If the patient is discharged, please notify the patient following to contact our office within 10- 14 days for follow-up visit. I discussed the patient's pertinent medical information with Dr. Espinosa. He agrees with the plan of care as implemented. Status: Acute (5) TIA (transient ischemic attack) Status: Acute
[2017-03-13] MEDS: MIRTAZAPINE 15 MG TAB PO SCH (21:55)
[2017-03-13] MEDS: ASPIRIN 81 MG CHEW PO SCH (21:56)
[2017-03-14] MEDS: FINASTERIDE 5 MG TAB PO SCH (08:52)
[2017-03-14] MEDS: MULTIVITAMINS, THERA 1 EACH TAB PO SCH (08:52)
[2017-03-14] MEDS: SODIUM BICARBONATE TAB 650 MG TAB PO SCH (08:52)
--- NOTE | 2017-03-14 09:34 | PN ---
DATE OF SERVICE: 03/13/2017 INTERVAL HISTORY: Mr. Guillen is an 86-year-old male with ESRD on hemodialysis, previous history of stroke with right-sided weakness admitted to the hospital with slurred speech and poor oral intake along with suspected left sided weakness. Left-sided weakness and slurred speech has been resolved now. Possible TIA and encephalopathy has been suspected at this time. Otherwise, patient was able swallow dysphagia diet and started on dysphagia diet now. Tolerating p.o. diet. Denied any chest pain or short of breath. The patient underwent hemodialysis today. No nausea or vomiting. No fever. No chills. No acute overnight issues. Anticipate discharge to extended care facility in next 24 hours. REVIEW OF SYSTEMS: CONSTITUTIONAL: No fever. No chills. RESPIRATORY: No cough or sputum production. CARDIOVASCULAR: No chest pain or short of breath. ABDOMEN: No nausea, vomiting, or abdominal pain. GENITOURINARY: Negative. ENDOCRINE: Negative. PSYCHIATRY: Negative. SKIN: Negative. All other 14-point review of systems negative except as the above. CURRENT MEDICATIONS: Reviewed. PHYSICAL EXAMINATION: An 86-year-old male lying on the bed comfortably, awake, alert and oriented x3. Appears to be in no apparent distress. VITALS: Blood pressure is 108/56, pulse is 68, respiration 18, temperature afebrile, pulse ox 98% on room. HEENT: Atraumatic, normocephalic. Neck is supple. No JVD. CVS EXAM: S1, S2 heard. No murmurs, no gallop. LUNGS: Bilateral air entry is present. No wheezing, no crackles. ABDOMEN: Soft, nontender. Bowel sounds present. MOBILE EQUIPMENT MECHANIC: Awake, alert, oriented x3. Patient does have right-sided weakness from previous stroke. PSYCHIATRIC: Cooperative. EXTREMITIES: No edema. Pulses palpable bilaterally. LABORATORY DATA: WBC 5.8, hemoglobin 12.1, platelets 101. Sodium 138, potassium 4.4, chloride 98, bicarb is 18, BUN 69, creatinine 7.83. Calcium 9.4. Homocysteine level 30.5. IMPRESSION: 1. Altered mental status secondary to acute metabolic encephalopathy and also possible transient ischemic attack at this time. Patient underwent hemodialysis today. 2. Slurred speech and aphasia and difficulty swallowing. The patient's able to swallow dysphagia diet and started on oral diet now. 3. History of cerebrovascular accident with right hemiparesis in the past. 4. End-stage renal disease on hemodialysis Monday, Monday, Monday. 5. Chronic atrial fibrillation, on aspirin due to previous nosebleed. 6. Major depression. 7. Elevated troponin level due to chronic kidney disease unlikely acute coronary syndrome. No complaints of chest pain. 8. Degenerative joint disease. 9. Deep venous thrombosis prophylaxis. DISCUSSION AND PLAN: The patient is continued on current management and encourage p.o. intake. Patient is getting hemodialysis today. Otherwise, the patient was started on folic acid and continue the current management. Further recommendations depends on the clinical course. Anticipate discharge in the next 24 hours to extended-care facility.
--- NOTE | 2017-03-14 10:18 | P.PN ---
Subjective Patient is seen in follow-up for end-stage renal disease. He is maintained on hemodialysis on a Monday schedule. Patient presented with altered mental status as well as slurred speech. CT of the brain revealed no evidence of acute CVA. He is currently resting in bed. He responds to verbal commands appropriately. Denies chest pain or shortness of breath. He did fail swallow eval initially and is currently on a dysphagia 2 diet. No vomiting or diarrhea. Hemodynamically stable. Eager to be discharged. Vital signs are stable. General: The patient appeared well nourished and normally developed. HEENT: Head exam is unremarkable. Neck is without jugular venous distension. LUNGS: Lungs are clear to auscultation and percussion. Breath sounds decreased. HEART: Rate and Rhythm are regular. First and second heart sounds normal. No murmurs, rubs or gallops. ABDOMEN: Abdominal exam reveals normal bowel sounds. Non-tender and non- distended. No evidence of peritonitis. EXTREMITITES: No clubbing, cyanosis, or edema. Objective - Vital Signs Vital signs: Vital Signs Temp 98.3 F 03/14/17 06:22 Pulse 73 03/14/17 06:22 Resp 18 03/14/17 06:22 BP 111/61 03/14/17 06:22 Pulse Ox 95 03/14/17 06:22 Intake & Output 03/13/17 03/14/17 03/14/17 18:59 06:59 18:59 Intake Total 100 60 Output Total 100 50 Balance 0 10 Intake: Oral 100 60 Output: Urine 100 50 Other: Voiding Method Urinal Urinal Incontinent Incontinent # Voids 1 - Labs CBC & Chem 7: 03/13/17 06:14 03/13/17 06:14 Assessment and Plan Plan: Assessment: #1. End-stage renal disease maintained on hemodialysis on a Monday schedule. #2. Altered mental status with concern for an acute CVA. This is not due to uremia. Questionable#3. Hypertension with chronic kidney disease. Controlled. #4. Metabolic acidosis, maintained on oral sodium bicarbonate. #5. Chronic atrial fibrillation. Rate controlled. Plan: Hemodialysis Monday with goal 2 liters ultrafiltration. Maintain oral sodium bicarbonate supplementation. Neurology following. Potential discharge today.
[2017-03-14 14:54] VITALS: BP 104/55; PULSE 70; RESP 16; TEMP 97.5
--- NOTE | 2017-03-14 16:06 | DS ---
DATE OF ADMISSION: 03/10/2017 DATE OF DISCHARGE: 03/14/2017 CONSULTATION: Nephrology. PROCEDURES: None. DISCHARGE DIAGNOSES: 1. Altered mental status secondary to acute metabolic encephalopathy and also possible transient ischemic attack with left-sided weakness noted, but weakness has completely resolved now. 2. Metabolic encephalopathy, improved. 3. Slurred speech and aphasia and difficulty swallowing. Patient was able to swallow dysphagia level to diet now. Continued on PT and OT. 4. History of cerebrovascular accident with right-sided hemiparesis in the past. 5. End-stage renal disease, on hemodialysis Monday, Monday, Monday. 6. Chronic atrial fibrillation, currently on aspirin. ( ) anticoagulation was discontinued previously. 7. Major depression. 8. Elevated troponin level due to chronic kidney disease, unlikely ACS. No complaints of chest pain. 9. Degenerative joint disease. 10. Deep venous thrombosis prophylaxis. 11. Elevated homocysteine level. Patient was started on Folbic as per Neurology. HOSPITAL COURSE: Mr. Aleman is an 86-year-old male with a known history of ESRD, on hemodialysis, who was admitted to the hospital with generalized weakness, slurred speech and poor oral intake and also found to have left-sided weakness and suspected TIA, was sent to the hospital. Patient had a neurological workup, including carotid duplex, 2-D echo and brain CT as well as neurology consultation. Patient does not have any evidence of new CVA now. His mental status and weakness were thought to be secondary to acute metabolic encephalopathy, which has improved, and currently patient is awake, alert, oriented x3. Otherwise, patient did fail swallow evaluation initially. Patient was seen by Speech and ( ) Therapy and was started on dysphagia level 2 diet and mechanical soft diet. Patient is tolerating well for the last 24 hours. No fever. No chills. No acute overnight issues. Patient had hemodialysis yesterday. Patient will be going for hemodialysis tomorrow. Otherwise, patient is stable for discharge back to [facility]. DISCHARGE PHYSICAL EXAMINATION: An 86-year-old male lying in bed comfortably. Awake, alert and oriented x3. Appears to be in no distress. VITALS: Blood pressure is 111/61, pulse 73, respiration 18, temperature afebrile, pulse ox 95% on room air. HEENT: Atraumatic, normocephalic. NECK: Supple. No JVD. CVS: S1, S2 heard. No murmurs. No gallop. LUNGS: Bilateral air entry is present. No wheezing. No crackles. ABDOMEN: Soft, nontender. Bowel sounds are present. TRANSPLANTER: Awake, alert and oriented x3. Patient does have right-sided hemiparesis from previous CVA. EXTREMITIES: No edema. Pulses are palpable bilaterally. No clubbing or cyanosis. PSYCHIATRIC: Cooperative. LABORATORY DATA: WBC 5.8, hemoglobin 12.1, platelets 101. Sodium 138, potassium 4.4, chloride 98, bicarb 18. BUN 69, creatinine 7.83. Calcium 9.4. Blood sugar 62. Discharge physical examination done. Discharge medications include: 1. Aspirin 81 mg at bedtime. 2. Finasteride. 3. Proscar 5 mg p.o. daily. 4. Mirtazapine 30 mg p.o. at bedtime. 5. Multivitamins 1 tablet p.o. daily. 6. Sodium bicarbonate 325 mg p.o. daily. 7. Tylenol 650 mg p.o. q.6 hourly p.r.n. for pain. 8. Folbic 1 each p.o. daily. Patient will be discharged back to [facility] facility in stable condition. Activity as tolerated. Diet: Patient should be on mechanical soft dysphagia level 2 diet. Otherwise, patient is stable for discharge home. Follow up with the primary physician in 1-2 days. Time taken more than 35 minutes, including 18 minutes ( ) and coordinating care.
--- NOTE | 2017-03-29 09:12 | EEG ---
DATE OF SERVICE: 03/13/2017 INDICATIONS FOR EXAMINATION: Stroke. AGE: 86Y DESCRIPTION OF THE PROCEDURE: This EEG was performed using a 21-channel digital electroencephalograph, following the international 10 to 20 system. DESCRIPTION OF THE RECORDING: From the beginning of the tracing, and with the patient's eyes closed, the background rhythm was mostly consisting of 6 Hz theta frequency in the posterior occipital leads. No obvious asymmetry is seen. Photic stimulation was performed with no driving response seen. No pathological waves were elicited. Occasional movement and muscle artifacts are seen. Hyperventilation was not performed. The patient remains awake throughout the tracing. No epileptiform discharges were seen. His EKG lead showed a regular rate and rhythm. INTERPRETATION: This awake EEG can be considered within normal limits. There was no asymmetry seen. No epileptiform discharges were noticed. The absence of epileptiform discharges does not rule out the diagnosis of epilepsy, therefore, clinical correlation is recommended.
== END 2017-03-14 16:00 | DRG 70 ==
LOC: 6SEL 13:18 → 5MS5E 03-14 10:33
PROVIDERS: ADMIT Internal Medicine; ATTEND Internal Medicine
PROC: 5A1D00Z (ICD-10-PCS; principal; 2017-03-13)
DX: G93.41 Metabolic encephalopathy (principal); N18.6 End stage renal disease; I13.2 Hypertensive heart and chronic kidney disease with heart failure and with stage 5 chronic kidney disease, or end stage renal disease; E87.2 Acidosis; G45.9 Transient cerebral ischemic attack, unspecified; I69.351 Hemiplegia and hemiparesis following cerebral infarction affecting right dominant side; I48.0 Paroxysmal atrial fibrillation; R32 Unspecified urinary incontinence; I50.9 Heart failure, unspecified; F32.9 Major depressive disorder, single episode, unspecified; I48.2 Chronic atrial fibrillation; M19.90 Unspecified osteoarthritis, unspecified site; K57.90 Diverticulosis of intestine, part unspecified, without perforation or abscess without bleeding; D63.1 Anemia in chronic kidney disease; Z79.82 Long term (current) use of aspirin; Z79.899 Other long term (current) drug therapy; Z99.2 Dependence on renal dialysis
CPT/HCPCS: 70450; 80048; 80061; 83090; 84100; 84484; 85025; 87502; 90935; 93306; 93880; 95816